=== PATIENT | male | born 1965 | race Caucasian/White ===

== ENCOUNTER 2016-07-17 13:00 | Inpatient (IN) | payer OTHER ==
[~2016-07-17] VITALS: Ht 170.2 cm; Wt 106.8 kg
[2016-08-14] MEDS ORDERED: ASPI81 PO (14:07)
[2016-08-14] MEDS ORDERED: METF500T4 PO (14:07)
[2016-08-14] MEDS ORDERED: AMLO-511 PO (14:07)
[2016-08-14] MEDS ORDERED: BISO5TAB26 PO (14:07)
[2016-08-14] MEDS ORDERED: LOSA50TA37 PO (14:07)
[2016-08-17] MEDS ORDERED: CeFAZolin 2 GM/DEXTROSE 50 ML IV ONE ×2 (07:00→09:31)
[2016-08-17] MEDS ORDERED: RINGERS SOLUTION,LACTATED 1,000 ML IV ONE ×3 (07:00→11:43)
[2016-08-17 11:00] LABS: BASOPHILS % (AUTO) 0.1 % (0.0-2.0); EOSINOPHILS % (AUTO) 1.8 % (1.0-6.0); HEMATOCRIT 41.8 % (41-53); HEMOGLOBIN 14.6 g/dL (13.5-17.5); LYMPHOCYTES # (AUTO) 2.8 K/uL (1.0-4.8); LYMPHOCYTES % (AUTO) 24.8 % (22.0-44.0); MEAN CORPUSCULAR HEMOGLOBIN 32.5 pg (26.0-34.0); MEAN CORPUSCULAR HGB CONC 34.9 G/dL (31.0-37.0); MEAN CORPUSCULAR VOLUME 93 fL (80-100); MONOCYTES # (AUTO) 0.7 K/uL (0.1-1.0); MONOCYTES % (AUTO) 6.4 % (2.0-9.0); NEUTROPHILS # (AUTO) 7.5 K/uL (1.8-7.7); NEUTROPHILS % (AUTO) 66.9 % (40.0-70.0); PLATELET COUNT (AUTO) 268 K/uL (150-450); RED BLOOD CELL COUNT(AUTO) 4.49 MIL/uL (4.50-5.90); RED CELL DISTRIBUTION WIDTH 13.2 % (11.5-14.5); WHITE BLOOD COUNT (AUTO) 11.2 K/uL (4.5-11.0)
[2016-08-17 11:02] LABS: GLUCOSE,POINT OF CARE 138 MG/DL (70-110)
[2016-08-17] MEDS ORDERED: BUPIVACAINE HCL/PF 0.5% 30 ML VIAL ONE (11:42)
[2016-08-17] MEDS ORDERED: SODIUM CL IRRIG SOLN BAG 3,000 ML IRRIG ONE (11:43)
[2016-08-17] MEDS ORDERED: TRANEXAMIC ACID 1,000 MG in DEXTROSE 5%-WATER 50 ML IV ONE (11:45)
[2016-08-17] MEDS ORDERED: BUPIVACAINE LIPOSOME/PF 1.3%-13.3MG/ML SUSPENSION 20 ML VIAL INJ ONE (11:45)
[2016-08-17] MEDS ORDERED: MEPERIDINE-PF 25 MG/ML SYRINGE IVP PRN (12:00)
[2016-08-17] MEDS ORDERED: KETOROLAC TROMETHAMINE 60 MG/2 ML VIAL IM ONE (12:00)
[2016-08-17] MEDS ORDERED: FentaNYL CITRATE-PF 100 MCG/2 ML VIAL IVP PRN (12:00)
[2016-08-17] MEDS ORDERED: HYDROmorphone 2 MG/ML SYRINGE IVP PRN (12:00)
[2016-08-17] MEDS ORDERED: LIDOCAINE HCL/PF 2% 5 ML VIAL INJ ONE (12:00)
[2016-08-17] MEDS ORDERED: DEXAMETHASONE SOD PHOS 4 MG/ML VIAL IVP ONE (12:00)
[2016-08-17] MEDS ORDERED: EPHEDrine SULFATE 50 MG/ML VIAL IM ONE (12:00)
[2016-08-17] MEDS ORDERED: ONDANSETRON HCL 4 MG/2 ML VIAL IVP ONE (12:00)
[2016-08-17] MEDS ORDERED: 0.9% SODIUM CHLORIDE 10 ML VIAL IVP ONE (12:00)
[2016-08-17] MEDS ORDERED: FentaNYL CITRATE-PF 100 MCG/2 ML VIAL IVP ONE (12:00)
[2016-08-17] MEDS ORDERED: PROPOFOL 1% 20 ML VIAL IVP ONE (12:00)
[2016-08-17] MEDS ORDERED: KETAMINE HCL 50 MG/ML 10 ML VIAL IVP ONE (12:00)
[2016-08-17] MEDS ORDERED: SODIUM CHLORIDE 0.9% 50 ML ONE (13:05)
[2016-08-17] MEDS ORDERED: ZOLPIDEM TARTRATE 5 MG TABLET PO PRN (13:15)
[2016-08-17] MEDS ORDERED: MIDAZOLAM HCL 2 MG/2 ML VIAL IVP ONE (14:59)
[2016-08-17 15:00] VITALS: BP 130/72
[2016-08-17] MEDS: SODIUM CHLORIDE 0.9% 1,000 ML IV SCH (15:15)
[2016-08-17] MEDS: CeFAZolin 1 GM/DEXTROSE 50 ML IV SCH ×2 (16:13→23:48)
[2016-08-17] MEDS: CYCLOBENZAPRINE HCL 10 MG TABLET PO SCH ×2 (17:27→23:48)
[2016-08-17 17:37] LABS: GLUCOSE,POINT OF CARE 124 MG/DL (70-110)
[2016-08-17] MEDS: MetFORMIN HCL 500 MG TABLET PO SCH (17:52)
[2016-08-17 19:53] VITALS: BP 137/75
[2016-08-17] MEDS: OXYGEN THERAPY IH SCH (20:00)
[2016-08-17] MEDS: LOSARTAN POTASSIUM 50 MG TABLET PO SCH (20:53)
[2016-08-17] MEDS: ACETAMINOPHEN 1000 MG/ISO-OSM 100 ML IV SCH (20:53)
[2016-08-17] MEDS: AmLODIPine BESYLATE 5 MG TABLET PO SCH (20:53)
[2016-08-17] MEDS: ASPIRIN 325 MG TABLET PO SCH (20:54)
[2016-08-17 23:55] VITALS: BP 127/76
[2016-08-18] MEDS: SODIUM CHLORIDE 0.9% 1,000 ML IV SCH (03:23)
[2016-08-18 04:00] VITALS: BP 126/68
[2016-08-18] MEDS: ACETAMINOPHEN 1000 MG/ISO-OSM 100 ML IV SCH ×3 (04:16→21:04)
[2016-08-18] MEDS: CYCLOBENZAPRINE HCL 10 MG TABLET PO SCH ×4 (06:00→23:43)
[2016-08-18 06:06] LABS: BASOPHILS # (AUTO) 0.05 K/uL (0.00-0.20); BASOPHILS % (AUTO) 0.4 % (0.0-2.0); EOSINOPHILS # (AUTO) 0.08 K/uL (0.00-0.70); EOSINOPHILS % (AUTO) 0.55 % (1.0-6.0); HEMATOCRIT 35.7 % (41-53); HEMOGLOBIN 12.2 g/dL (13.5-17.5); LYMPHOCYTES # (AUTO) 2.2 K/uL (1.0-4.8); LYMPHOCYTES % (AUTO) 15.8 % (22.0-44.0); MEAN CORPUSCULAR HEMOGLOBIN 32.6 pg (26.0-34.0); MEAN CORPUSCULAR HGB CONC 34.1 G/dL (31.0-37.0); MEAN CORPUSCULAR VOLUME 96 fL (80-100); MONOCYTES # (AUTO) 1.4 K/uL (0.1-1.0); MONOCYTES % (AUTO) 9.9 % (2.0-9.0); NEUTROPHILS # (AUTO) 10.3 K/uL (1.8-7.7); NEUTROPHILS % (AUTO) 73.3 % (40.0-70.0); PLATELET COUNT (AUTO) 218 K/uL (150-450); RED BLOOD CELL COUNT(AUTO) 3.73 MIL/uL (4.50-5.90); RED CELL DISTRIBUTION WIDTH 13.9 % (11.5-14.5)
[2016-08-18 06:21] LABS: ANION GAP 7 mmol/L (8-16); CALCIUM, TOTAL 8.4 mg/dL (8.8-10.5); CARBON DIOXIDE 29 mmol/L (22-29); CHLORIDE 101 mmol/L (98-107); CREATININE 1.06 mg/dL (0.60-1.30); GLOMERULAR FILTR. RATE CALC > 60 mL/min (>60); POTASSIUM 4.2 mmol/L (3.5-5.1); SODIUM SERUM 137 mmol/L (136-145); UREA NITROGEN, BLOOD 11 mg/dL (7-18)
[2016-08-18] MEDS ORDERED: MAGNESIUM HYDROXIDE SUSPENSION 30 ML UDCUP PO PRN (07:00)
[2016-08-18] MEDS: OXYGEN THERAPY IH SCH ×2 (08:00→20:00)
[2016-08-18 08:02] VITALS: BP 129/76
[2016-08-18] MEDS: ASPIRIN 325 MG TABLET PO SCH ×2 (08:59→21:03)
[2016-08-18] MEDS: LOSARTAN POTASSIUM 50 MG TABLET PO SCH ×2 (08:59→21:03)
[2016-08-18] MEDS: BISOPROLOL FUMARATE 5 MG TABLET PO SCH (08:59)
[2016-08-18] MEDS: MetFORMIN HCL 500 MG TABLET PO SCH ×3 (08:59→17:31)
[2016-08-18] MEDS: AmLODIPine BESYLATE 5 MG TABLET PO SCH ×2 (08:59→21:03)
[2016-08-18] MEDS: HYDROmorphone 2 MG/ML SYRINGE IVP PRN (08:59)
[2016-08-18] MEDS: DOCUSATE SODIUM 100 MG CAPSULE PO SCH ×2 (09:00→21:03)
[2016-08-18 16:50] VITALS: BP 124/70
[2016-08-18] MEDS: OxyCODONE HCL/ACETAMINOPHEN 5-325 MG TABLET PO PRN (17:32)
[2016-08-18 19:57] VITALS: BP 124/76
[2016-08-18 23:43] VITALS: BP 125/64
[2016-08-19 04:03] VITALS: BP 141/78
[2016-08-19] MEDS: HYDROmorphone 2 MG/ML SYRINGE IVP PRN (04:18)
[2016-08-19 06:18] LABS: BASOPHILS % (AUTO) 0.2 % (0.0-2.0); EOSINOPHILS % (AUTO) 1.2 % (1.0-6.0); HEMATOCRIT 34.1 % (41-53); HEMOGLOBIN 11.9 g/dL (13.5-17.5); LYMPHOCYTES # (AUTO) 2.2 K/uL (1.0-4.8); LYMPHOCYTES % (AUTO) 15.8 % (22.0-44.0); MEAN CORPUSCULAR HEMOGLOBIN 32.7 pg (26.0-34.0); MEAN CORPUSCULAR HGB CONC 34.8 G/dL (31.0-37.0); MEAN CORPUSCULAR VOLUME 94 fL (80-100); MONOCYTES # (AUTO) 1.6 K/uL (0.1-1.0); MONOCYTES % (AUTO) 11.2 % (2.0-9.0); NEUTROPHILS # (AUTO) 10.1 K/uL (1.8-7.7); NEUTROPHILS % (AUTO) 71.6 % (40.0-70.0); PLATELET COUNT (AUTO) 202 K/uL (150-450); RED BLOOD CELL COUNT(AUTO) 3.62 MIL/uL (4.50-5.90); RED CELL DISTRIBUTION WIDTH 13.8 % (11.5-14.5); WHITE BLOOD COUNT (AUTO) 14.1 K/uL (4.5-11.0)
[2016-08-19] MEDS: CYCLOBENZAPRINE HCL 10 MG TABLET PO SCH ×2 (06:31→11:53)
[2016-08-19 08:00] VITALS: BP 126/77
[2016-08-19] MEDS: MetFORMIN HCL 500 MG TABLET PO SCH ×2 (08:00→11:53)
[2016-08-19] MEDS: OXYGEN THERAPY IH SCH (08:00)
[2016-08-19] MEDS: ASPIRIN 325 MG TABLET PO SCH (08:01)
[2016-08-19] MEDS: AmLODIPine BESYLATE 5 MG TABLET PO SCH (08:01)
[2016-08-19] MEDS: LOSARTAN POTASSIUM 50 MG TABLET PO SCH (08:01)
[2016-08-19] MEDS: BISOPROLOL FUMARATE 5 MG TABLET PO SCH (08:01)
[2016-08-19] MEDS: DOCUSATE SODIUM 100 MG CAPSULE PO SCH (08:01)
[2016-08-19] MEDS: OxyCODONE HCL/ACETAMINOPHEN 5-325 MG TABLET PO PRN ×2 (08:10→12:27)
[2016-08-19 11:51] VITALS: BP 119/75
== END 2016-08-19 15:00 | disposition home health service (06) | DRG 470 ==
LOC: 4E 08-17 10:01 → OBSVTOIN 08-17 10:01 → 4E 08-17 11:27
PROVIDERS: ADMIT Orthopaedic Surgery; ATTEND Orthopaedic Surgery
PROC: 0SR903Z Replacement of Right Hip Joint with Ceramic Synthetic Substitute, Open Approach (ICD-10-PCS; principal; 2016-08-17 12:00)
DX: M16.11 Unilateral primary osteoarthritis, right hip (principal)
CPT/HCPCS: 82962; 87081; 88300; 97110; 97116; 97161; 97165; 97530; 97535; C9290; G0238; J0131; J0690; J1100; J1170; J1885; J2250; J2405; J2704; J3010; J3490; J7030; J7050; J7060; J7120